=== PATIENT | female | born 1970 | race Caucasian/White ===

== ENCOUNTER → 2016-09-26 | Outpatient (REF) | payer OTHER ==
[2016-09-26 17:00] LABS: FOLLICLE STIMULATING HORMONE 55.6 mIU/mL; LUTEINIZING HORMONE 31.6 mIU/mL; THYROID PEROXIDASE ANTIBODY < 28.0 U/ML (<60.0)
[2016-09-26 17:18] LABS: FREE T4 1.09 NG/DL (0.76-1.46)
[2016-09-26 17:22] LABS: MEAN CORPUSCULAR HEMOGLOBIN 30.3 pg (27.0-33.0); MEAN CORPUSCULAR HGB CONC 32.7 g/dl (32.0-36.5); MEAN CORPUSCULAR VOLUME 92.6 fl (80.0-96.0); RED CELL DISTRIBUTION WIDTH 14.1 % (11.5-14.5); WHITE BLOOD COUNT 5.1 K/mm3 (4.0-10.0)
== END ==
LOC: M LABDRAW1 15:38
PROVIDERS: ATTEND Internal Medicine Endocrinology, Diabetes & Metabolism
DX: E04.2 Nontoxic multinodular goiter (principal); R53.83 Other fatigue

== ENCOUNTER → 2017-06-22 | Outpatient (CLI) | payer BC | LOC: M WUC 11:14 | DX: S80.02XA Contusion of left knee, initial encounter (principal); X58.XXXA Exposure to other specified factors, initial encounter; Y92.9 Unspecified place or not applicable; Y93.9 Activity, unspecified | CPT/HCPCS: 73560 ==

== ENCOUNTER 2021-12-16 10:53 | Day surgery (SDC) | payer BC ==
[~2021-12-16] VITALS: Ht 172.7 cm; Wt 82.1 kg
[~2021-12-16 10:53] MED LIST: LEXA1TAB2 PO; NS 1,000 ML IV ONE; TOPI1CAP2 PO
[2021-12-16] MEDS ORDERED: propofoL 200 MG/20 ML VIAL As Ordered ONE (12:30)
[2021-12-16] MEDS ORDERED: fentaNYL 100 MCG/2 ML INJECTION As Ordered ONE (12:44)
[2021-12-16 12:54] VITALS: BP 113/57
== END 2021-12-16 12:55 | disposition home or self-care (01) ==
LOC: M OPP 10:53
PROVIDERS: ATTEND Surgery
DX: Z12.11 Encounter for screening for malignant neoplasm of colon (principal); Z79.899 Other long term (current) drug therapy; Z88.0 Allergy status to penicillin
CPT/HCPCS: 45378; J3010